=== PATIENT | male | born 1980 | race Caucasian/White ===

== ENCOUNTER 2017-09-29 09:20 | Emergency (ER) | payer OTHER ==
[~2017-09-29] VITALS: Ht 193 cm; Wt 112.0 kg
[~2017-09-29 09:20] MED LIST: LISI-603 PO; METF10002 PO; SIMV40TA5 PO
--- NOTE | 2017-09-29 09:51 | NUR ---
Dr Lutz at the bedside for eval and exam.
[2017-09-29] MEDS ORDERED: OXYCODONE HCL 5 MG TABLET PO ONE (10:00)
[2017-09-29 10:08] VITALS: BP 112/82
--- NOTE | 2017-09-29 10:09 | NUR ---
Patient discharged to home in stable conditon. Written and verbal after care instructions given. Patient verbalizes understanding of instructions.
[2017-09-29] MEDS ORDERED: OXYCODONE HCL 5 MG TABLET ONE (10:16)
== END 2017-09-29 10:09 | disposition home or self-care (01) ==
LOC: ER 09:20
DX: G89.29 Other chronic pain (principal); M54.5 Low back pain; I10 Essential (primary) hypertension; E11.9 Type 2 diabetes mellitus without complications; F17.200 Nicotine dependence, unspecified, uncomplicated
CPT/HCPCS: 99283; A4663

== ENCOUNTER 2017-12-19 20:10 | Inpatient (IN) | payer OTHER ==
[~2017-12-19] VITALS: Ht 193 cm; Wt 93.0 kg
[2017-12-19] MEDS ORDERED: ONDANSETRON IV *ER 4 MG/2 ML VIAL IV ONE (20:55)
[2017-12-19] MEDS ORDERED: ASPIRIN 325 MG TABLET PO ONE (20:55)
[2017-12-19] MEDS ORDERED: MORPHINE SULFATE 2 MG/1 ML DISP.SYRIN IV ONE ×2 (20:55→22:17)
[2017-12-19] MEDS ORDERED: IV NORMAL SALINE 500 ML IV ONE (21:00)
[2017-12-19] MEDS ORDERED: ASPIRIN 325 MG TABLET ONE (21:10)
[2017-12-19] MEDS ORDERED: ONDANSETRON 4 MG/2 ML VIAL ONE (21:11)
[2017-12-19] MEDS ORDERED: MORPHINE SULFATE 4 MG/1 ML DISP.SYRIN ONE ×2 (21:11→21:52)
[2017-12-19 21:18] LABS: BASOPHILS # (AUTO) 0.1 K/uL (0.0-8.0); BASOPHILS % (AUTO) 0.6 % (0.0-2.0); EOSINOPHILS # (AUTO) 0.1 K/uL (0.0-0.7); EOSINOPHILS % (AUTO) 1.1 % (0.0-7.0); HEMATOCRIT 41.7 % (36.7-47.1); HEMOGLOBIN 14.3 g/dL (12.5-16.3); LYMPHOCYTES # (AUTO) 3.5 K/uL (20.0-40.0); LYMPHOCYTES % (AUTO) 38.6 % (20.5-51.5); MEAN CORPUSCULAR HEMOGLOBIN 29.3 uug (23.8-33.4); MEAN CORPUSCULAR HGB CONC 34 g/dL (32.5-36.3); MEAN CORPUSCULAR VOLUME 85.2 fL (73.0-96.2); MONOCYTES # (AUTO) 0.6 K/uL (2.0-10.0); MONOCYTES % (AUTO) 6.2 % (0.0-11.0); NEUTROPHILS # (AUTO) 4.8 K/uL (1.8-8.9); NEUTROPHILS % (AUTO) 53.5 % (38.5-71.5); PLATELET COUNT (AUTO) 370 K/uL (152-348)
[2017-12-19 21:30] LABS: BILIRUBIN,TOTAL 0.4 mg/dL (0.2-1.0); CREATININE 1.2 mg/dL (0.6-1.3); POTASSIUM 3.5 mmol/L (3.5-5.1); TOTAL PROTEIN, SERUM 8.2 g/dL (6.4-8.2)
[2017-12-19] MEDS ORDERED: INSULIN REGULAR, HUMAN 300 UNIT/3 ML VIAL ONE (21:52)
[2017-12-19] MEDS ORDERED: LORAZEPAM 1 MG TABLET ONE (21:52)
[2017-12-19] MEDS ORDERED: LORAZEPAM 0.5 MG TABLET PO ONE (22:19)
[2017-12-19] MEDS ORDERED: HYDROCODONE/APAP 10-325 MG TABLET PO ONE (22:24)
[2017-12-19] MEDS ORDERED: INSULIN REGULAR, HUMAN 1,000 UNITS/10 ML VIAL SUBCUT ONE (22:30)
--- NOTE | 2017-12-19 22:30 | NUR ---
nsg: pt received a/o x 4 fr er with c/o chest pain, back, leg pain. v/s stable. tele, SR. will call md for admitting orders.
[2017-12-19] MEDS ORDERED: HYDROCODONE/APAP 10-325 MG TABLET ONE (22:32)
--- NOTE | 2017-12-19 23:22 | NUR ---
Pt. admitted to TELE, under care of Giovanna Jose (KALPANA). Belongs List completed
[2017-12-19 23:42] VITALS: BP 168/96
[2017-12-20] MEDS ORDERED: MAGNESIUM HYDROXIDE 30 ML LIQUID UDC PO PRN (00:15)
[2017-12-20] MEDS ORDERED: NITROGLYCERIN 0.4 MG/TAB BOTTLE SL PRN (00:15)
[2017-12-20] MEDS: BLOOD SUGAR DIAGNOSTIC 1 EACH STRIP VI SCH ×3 (00:15→11:25)
[2017-12-20] MEDS ORDERED: ONDANSETRON 4 MG/2 ML VIAL IV PRN (00:15)
[2017-12-20] MEDS ORDERED: ZOLPIDEM 5 MG TABLET PO PRN (00:15)
[2017-12-20] MEDS ORDERED: DEXTROSE 50% 50 ML DISP.SYRIN IV PRN (00:15)
[2017-12-20] MEDS ORDERED: ACETAMINOPHEN 325 MG TABLET PO PRN (00:15)
[2017-12-20] MEDS ORDERED: Z GUARD REMEDY PASTE 57 GM TUBE TOP PRN (00:15)
[2017-12-20] MEDS ORDERED: BLOOD SUGAR DIAGNOSTIC 1 EACH STRIP VI ONE (00:30)
[2017-12-20] MEDS: HYDROCODONE/APAP 5-325MG TABLET PO PRN ×4 (00:41→10:01)
--- NOTE | 2017-12-20 00:46 | NUR ---
nsg: pt refused acu check stated already got checked in ER, and stated he already ate so he's sugar will be high.
[2017-12-20 04:00] VITALS: BP 144/91
--- NOTE | 2017-12-20 06:00 | NUR ---
nsg: pt received norco x 2 doses for chest, back, leg pain. tele, SR. v/s stable. hasnt urinated since admission. however, urinated in ER.
[2017-12-20] MEDS: INSULIN REGULAR, HUMAN 300 UNIT/3 ML VIAL SQ PRN ×2 (08:15→11:26)
[2017-12-20] MEDS ORDERED: ENOXAPARIN SODIUM 40 MG/0.4 ML DISP.SYRIN SQ SCH (09:00)
[2017-12-20] MEDS ORDERED: ASPIRIN 81 MG TAB.CHEW PO SCH (09:00)
[2017-12-20] MEDS ORDERED: HYDROCODONE/APAP 10-325 MG TABLET PO ONE (11:00)
--- NOTE | 2017-12-20 11:04 | NUR ---
Spoke with SUPERVISOR CUTTING AND BONING Giovanna Jose regarding pt's pain. New orders received and carried out.
[2017-12-20] MEDS ORDERED: HYDR-3326 PO (11:39)
--- NOTE | 2017-12-20 12:22 | NUR ---
Pt left the floor for discharge (will take bus). Discharge instructions provided and discussed with the pt. Meds reconciled by KALPANA Edwards and reviewed with the pt. Pt verbalized understanding of discharge instructions and medications. All belongings reviewed and returned with the pt. HL left forearm removed. Pt stable and nad noted upon discharge.
== END 2017-12-20 12:18 | disposition home or self-care (01) | DRG 313 ==
LOC: ER 20:11 → TELE 23:00
PROVIDERS: ADMIT Nurse Practitioner Acute Care; ATTEND Nurse Practitioner Acute Care
DX: R07.89 Other chest pain (principal); E87.1 Hypo-osmolality and hyponatremia; F11.20 Opioid dependence, uncomplicated; G89.4 Chronic pain syndrome; M54.40 Lumbago with sciatica, unspecified side; Z79.84 Long term (current) use of oral hypoglycemic drugs; Z87.01 Personal history of pneumonia (recurrent); Z79.899 Other long term (current) drug therapy; Z98.1 Arthrodesis status; R94.5 Abnormal results of liver function studies; I10 Essential (primary) hypertension; E11.9 Type 2 diabetes mellitus without complications; Z59.8 Other problems related to housing and economic circumstances
CPT/HCPCS: 36415; 70030-TC; 71045; 85025; 85610; 93005; A4663; J1815; J2270; J2405; J7030

== ENCOUNTER 2018-01-16 10:25 | Emergency (ER) | payer OTHER ==
[~2018-01-16] VITALS: Ht 193 cm; Wt 116.6 kg
[~2018-01-16 10:25] MED LIST changes: +HYDR-3326 PO; -METF10002 PO; +METF10004 PO
[2018-01-16 11:25] LABS: BASOPHILS # (AUTO) 0.1 K/uL (0.0-8.0); EOSINOPHILS # (AUTO) 0.3 K/uL (0.0-0.7); EOSINOPHILS % (AUTO) 3.9 % (0.0-7.0); HEMATOCRIT 44.8 % (36.7-47.1); LYMPHOCYTES # (AUTO) 1.7 K/uL (20.0-40.0); LYMPHOCYTES % (AUTO) 26.2 % (20.5-51.5); MEAN CORPUSCULAR HGB CONC 34 g/dL (32.5-36.3); MEAN CORPUSCULAR VOLUME 86.5 fL (73.0-96.2); MONOCYTES # (AUTO) 0.3 K/uL (2.0-10.0); MONOCYTES % (AUTO) 5.3 % (0.0-11.0); NEUTROPHILS # (AUTO) 4.2 K/uL (1.8-8.9); NEUTROPHILS % (AUTO) 63.6 % (38.5-71.5); PLATELET COUNT (AUTO) 320 K/uL (152-348); RED BLOOD CELL COUNT(AUTO) 5.18 MIL/uL (4.06-5.63); WHITE BLOOD COUNT (AUTO) 6.6 K/uL (3.6-10.2)
[2018-01-16 11:33] LABS: CREATININE 0.9 mg/dL (0.6-1.3); POTASSIUM 4.2 mmol/L (3.5-5.1)
[2018-01-16 11:44] LABS: BILIRUBIN,TOTAL 0.4 mg/dL (0.2-1.0); TOTAL PROTEIN, SERUM 8.7 g/dL (6.4-8.2)
[2018-01-16] MEDS ORDERED: HYDROCODONE/APAP 10-325 MG TABLET ONE (11:55)
[2018-01-16] MEDS ORDERED: HYDROCODONE/APAP 10-325 MG TABLET PO ONE (12:00)
[2018-01-16] MEDS ORDERED: OXYCODONE/APAP 5-325 MG TABLET PO ONE (13:01)
[2018-01-16] MEDS ORDERED: OXYCODONE/APAP 5-325 MG TABLET ONE (13:08)
--- NOTE | 2018-01-16 13:58 | NUR ---
mse completed, pt d/c'd home, aci/rx x2 given, pt ambulated w/o diff/took all belongings.
[2018-01-16 13:59] VITALS: BP 155/85
== END 2018-01-16 14:00 | disposition home or self-care (01) ==
LOC: ER 10:25
DX: L02.11 Cutaneous abscess of neck (principal); J20.9 Acute bronchitis, unspecified; G89.29 Other chronic pain; M54.5 Low back pain; I10 Essential (primary) hypertension; E11.9 Type 2 diabetes mellitus without complications; F17.210 Nicotine dependence, cigarettes, uncomplicated; Z79.84 Long term (current) use of oral hypoglycemic drugs; Z79.899 Other long term (current) drug therapy
CPT/HCPCS: 36415; 71045; 80053; 85025; 87040 ×2; 99285; A4663

== ENCOUNTER 2018-02-07 08:17 | Emergency (ER) | payer OTHER ==
[~2018-02-07] VITALS: Ht 193 cm; Wt 115.7 kg
[2018-02-07] MEDS ORDERED: OXYC-133 PO (08:35)
--- NOTE | 2018-02-07 08:40 | NUR ---
When patient was asked the question, "Where are your injuries ?"- this patient said, "All over." AOX4, PEDRAZA, respiration:easy. Patient admits to seeing a pain doctor.
[2018-02-07] MEDS ORDERED: DIAZEPAM 2 MG TABLET PO ONE (08:45)
[2018-02-07] MEDS ORDERED: OXYCODONE/APAP 5-325 MG TABLET PO ONE (08:45)
[2018-02-07] MEDS ORDERED: OXYCODONE/APAP 5-325 MG TABLET ONE (08:49)
[2018-02-07] MEDS ORDERED: DIAZEPAM 5 MG TABLET ONE (08:49)
--- NOTE | 2018-02-07 09:35 | NUR ---
Patient discharged to home in stable conditon. Written and verbal after care instructions given to patient. Patient verbalizes understanding of instructions. Extensive explanation was given to patient regarding the need for a follow-up to his ortho doctor & pain doctor. Security assistance was called for discharging this patient.
== END 2018-02-07 09:39 | disposition home or self-care (01) ==
LOC: ER 08:17
DX: G89.29 Other chronic pain (principal); M54.5 Low back pain; E11.9 Type 2 diabetes mellitus without complications; I10 Essential (primary) hypertension; F17.210 Nicotine dependence, cigarettes, uncomplicated; Z79.84 Long term (current) use of oral hypoglycemic drugs; Z79.891 Long term (current) use of opiate analgesic; Z79.899 Other long term (current) drug therapy
CPT/HCPCS: 72110; A4663

== ENCOUNTER 2019-03-15 22:05 | Inpatient (IN) | payer OTHER ==
[~2019-03-15] VITALS: Ht 188 cm; Wt 117.5 kg
[2019-03-15] MEDS: ONDANSETRON IV *ER 4 MG/2 ML VIAL IV ONE ×2 (21:50→22:36)
[2019-03-15] MEDS: IV NORMAL SALINE 1000 ML BAG IV ONE ×2 (21:55→22:35)
[2019-03-15] MEDS: DEXTROSE 5% IV ONE ×2 (22:00→22:50)
[2019-03-15] MEDS: ACETYLCYSTEINE IV ONE ×2 (22:00→22:50)
[~2019-03-15 22:05] MED LIST changes: -HYDR-3326 PO; +METF-442 PO; -METF10004 PO; +OXYC-133 PO
[2019-03-15] MEDS ORDERED: ONDANSETRON 4 MG/2 ML VIAL ONE (22:26)
[2019-03-15] MEDS ORDERED: ACETYLCYSTEINE IV ONE ×2 (22:26→23:15)
[2019-03-15] MEDS ORDERED: HYDROMORPHONE 1 MG/1 ML DISP.SYRIN IV ONE (22:30)
[2019-03-15] MEDS ORDERED: HYDROMORPHONE 1 MG/1 ML DISP.SYRIN ONE (22:43)
[2019-03-15 22:47] VITALS: BP 166/80
[2019-03-15 22:47] LABS: CARBON DIOXIDE 20 mmol/L (21-32); CHLORIDE 97 mmol/L (98-107); CREATININE 1.1 mg/dL (0.6-1.3); UREA NITROGEN, BLOOD 13 mg/dL (7-18)
[2019-03-15 22:48] LABS: BASOPHILS # (AUTO) 0.1 K/uL (0.0-8.0); BASOPHILS % (AUTO) 0.5 % (0.0-2.0); EOSINOPHILS # (AUTO) 0.1 K/uL (0.0-0.7); EOSINOPHILS % (AUTO) 0.6 % (0.0-7.0); HEMATOCRIT 50.2 % (36.7-47.1); HEMOGLOBIN 16.9 g/dL (12.5-16.3); LYMPHOCYTES # (AUTO) 2.8 K/uL (20.0-40.0); LYMPHOCYTES % (AUTO) 25.6 % (20.5-51.5); MEAN CORPUSCULAR HEMOGLOBIN 29.2 uug (23.8-33.4); MEAN CORPUSCULAR HGB CONC 34 g/dL (32.5-36.3); MEAN CORPUSCULAR VOLUME 86.9 fL (73.0-96.2); MONOCYTES # (AUTO) 0.4 K/uL (2.0-10.0); MONOCYTES % (AUTO) 3.4 % (0.0-11.0); NEUTROPHILS # (AUTO) 7.6 K/uL (1.8-8.9); NEUTROPHILS % (AUTO) 69.9 % (38.5-71.5); PLATELET COUNT (AUTO) 302 K/uL (152-348); RED BLOOD CELL COUNT(AUTO) 5.78 MIL/uL (4.06-5.63); WHITE BLOOD COUNT (AUTO) 10.8 K/uL (3.6-10.2)
[2019-03-15 22:54] LABS: ACETAMINOPHEN 15.1 ug/mL (10-30); ALANINE AMINOTRANSFERASE 24 U/L (16-63); ALKALINE PHOSPHATASE 149 U/L (50-136); ASPARTATE AMINOTRANSFERASE 15 U/L (15-37); BILIRUBIN,DIRECT 0.2 mg/dL (0.0-0.2); BILIRUBIN,TOTAL 0.5 mg/dL (0.2-1.0); TOTAL PROTEIN, SERUM 8.9 g/dL (6.4-8.2)
[2019-03-15 22:55] LABS: GLUCOSE 400 mg/dL (74-106)
[2019-03-15 22:59] LABS: ETHANOL < 3 MG/DL (0-0)
[2019-03-15] MEDS ORDERED: HALOPERIDOL LACTATE 5 MG/1 ML VIAL IM ONE (23:00)
[2019-03-15] MEDS ORDERED: IV NORMAL SALINE 1000 ML BAG IV ONE (23:00)
--- NOTE | 2019-03-15 23:04 | NUR ---
Pt bib RA 100 for the c/o nyquil overdose. Per paramedics, pt ingested "15,000 mg" total of 1.5 bottles. Pt is A/O x 4 upon arrival and able to verbalize feelings and follow command. Pt denies suicidal ideation. Pt states "I was feeling bad and having a bad cough. I just wanted to feel better" Pt placed on monitor. Safe environment implemented. VSS.
[2019-03-15] MEDS ORDERED: DEXTROSE 5% IV ONE (23:15)
[2019-03-15] MEDS ORDERED: HALOPERIDOL LACTATE 5 MG/1 ML VIAL ONE (23:15)
--- NOTE | 2019-03-15 23:17 | NUR ---
Pt ambulated to bathroom with stable gait.
[2019-03-15] MEDS ORDERED: INSULIN REGULAR, HUMAN 300 UNIT/3 ML VIAL ONE (23:25)
--- NOTE | 2019-03-15 23:25 | NUR ---
Acetylcysteine 20% (200 mg/ml) (4mL) vials x 6 vials wasted with nursing slot supervisor witness. 2 vials returned to nursing slot supervisor.
[2019-03-15 23:26] VITALS: BP 158/78
[2019-03-15] MEDS ORDERED: INSULIN REGULAR, HUMAN 300 UNIT/3 ML VIAL SQ ONE (23:30)
[2019-03-15] MEDS ORDERED: ACETYLCYSTEINE 20% 800 MG/4 ML VIAL ONE (23:40)
--- NOTE | 2019-03-15 23:45 | NUR ---
Second Acetylcysteine IV unavailable at this time. Nursing slate splitting supervisor aware.
[2019-03-15 23:53] LABS: BILIRUBIN,TOTAL 0.5 mg/dL (0.2-1.0); POTASSIUM 3.8 mmol/L (3.5-5.1)
[2019-03-15 23:54] VITALS: BP 181/87
[2019-03-16] MEDS ORDERED: LORAZEPAM 2 MG/1 ML VIAL ONE (00:28)
[2019-03-16] MEDS ORDERED: LORAZEPAM 2 MG/1 ML VIAL IV ONE (00:30)
--- NOTE | 2019-03-16 00:34 | NUR ---
Per nursing tariff supervisor, weekend receptionist pharmacy called regarding Acetylcysteine IV. Pharmacy will do research regarding second acetylcysteine. ER aware.
--- NOTE | 2019-03-16 00:42 | NUR ---
[facility] called for panel call.
--- NOTE | 2019-03-16 00:45 | NUR ---
ER MD made aware of patient's elevated BP 181/87. Received orders to administer catapres 0.2 mg PO
--- NOTE | 2019-03-16 01:00 | NUR ---
Awaiting pharmacist at this time.
[2019-03-16] MEDS ORDERED: CLONIDINE HCL 0.2 MG TABLET ONE (01:09)
[2019-03-16] MEDS ORDERED: CLONIDINE HCL 0.2 MG TABLET PO ONE (01:15)
[2019-03-16 01:25] VITALS: BP 179/111
[2019-03-16] MEDS ORDERED: IV NS 1000 ML 1,000 ML IV PRN (01:28)
[2019-03-16] MEDS ORDERED: DEXTROSE 50% 50 ML DISP.SYRIN IV PRN (01:30)
[2019-03-16] MEDS ORDERED: LORAZEPAM 2 MG/1 ML VIAL IV PRN (01:30)
[2019-03-16] MEDS ORDERED: IBUPROFEN 400 MG TABLET PO PRN (01:30)
[2019-03-16] MEDS ORDERED: TEMAZEPAM 15 MG CAPSULE PO PRN (01:30)
[2019-03-16] MEDS ORDERED: INSULIN REGULAR, HUMAN 300 UNIT/3 ML VIAL SQ PRN (01:30)
[2019-03-16] MEDS ORDERED: INSULIN REGULAR, HUMAN 300 UNITS/3 ML VIAL SQ PRN (01:30)
[2019-03-16] MEDS ORDERED: MAGNESIUM HYDROXIDE 30 ML LIQUID UDC PO PRN (01:30)
[2019-03-16] MEDS ORDERED: ONDANSETRON 4 MG/2 ML VIAL IV PRN (01:30)
[2019-03-16] MEDS ORDERED: Z GUARD REMEDY PASTE 57 GM TUBE TOP PRN (01:30)
[2019-03-16] MEDS ORDERED: ACETYLCYSTEINE IV ONE (01:45)
[2019-03-16] MEDS ORDERED: DEXTROSE 5% IV ONE (01:45)
[2019-03-16] MEDS ORDERED: ACETYLCYSTEINE IV 10,000 MG in IV D5W 1000ML 1,000 ML IV ONE ×2 (02:00→06:00)
[2019-03-16 02:45] VITALS: BP 178/83
--- NOTE | 2019-03-16 02:50 | NUR ---
Pt. admitted to Tele , under care of Rustam SUN Belongs List completed Acetylcysteine IV 2nd bag initiated and to be continued as inpatient.
[2019-03-16 03:59] VITALS: BP 144/68
[2019-03-16 04:01] LABS: *BILIRUBIN,URIN NEGATIVE (NEGATIVE); *BLOOD, URINE 2+ (NEGATIVE); *COLOR,URINE YELLOW (YELLOW); *KETONES,URINE 3+ (NEGATIVE); *UROBILINOGEN,URINE 0.2 E.U./dl (NORMAL); LEUKOCYTE ESTERASE ,URINE NEGATIVE (NEGATIVE); NITRITE, URINE NEGATIVE (NEGATIVE); PH,URINE 7.5 (5.0-8.0)
[2019-03-16] MEDS: HYDROMORPHONE 1 MG/1 ML DISP.SYRIN IV PRN ×2 (04:16→08:33)
[2019-03-16 05:10] LABS: *AMPHETAMINE, URINE NEGATIVE (NEGATIVE); *BARBITURATE, URINE NEGATIVE (NEGATIVE); *CANNABINOID, URINE NEGATIVE (NEGATIVE); *CLARITY,URINE HAZY (CLEAR); *COCCAINE, URINE NEGATIVE (NEGATIVE); *OPIATE, URINE POSITIVE (NEGATIVE); *PHENCYCLIDINE SCREEN,URINE NEGATIVE (NEGATIVE); UGLUCOSE 3+ (NEGATIVE)
[2019-03-16 05:13] LABS: BACTERIA,URINE NONE SEEN /HPF (NONE SEEN); RBC,URINE 20-50 /HPF (0-3); SQUAMOUS EPITHELIAL CELL,UR FEW /HPF (NONE SEEN); WBC,URINE 0-3 /HPF (0-3)
[2019-03-16 05:14] LABS: MUCUS,URINE FEW /LPF (0-FEW)
[2019-03-16] MEDS ORDERED: ACETYLCYSTEINE IV 0 MG in IV D5W 1000ML 1,000 ML IV ONE (06:00)
--- NOTE | 2019-03-16 06:46 | NUR ---
Admitted to tele, orders carried out; received with ongoing 2nd mucomyst drip; new bag hanged down; no acute distress; safety maintained; continue to monitor; continue plan of care.
[2019-03-16 07:14] LABS: BASOPHILS % (AUTO) 0.2 % (0.0-2.0); BILIRUBIN,TOTAL 0.5 mg/dL (0.2-1.0); CREATININE 0.9 mg/dL (0.6-1.3); HEMATOCRIT 47.8 % (36.7-47.1); LYMPHOCYTES # (AUTO) 1.1 K/uL (20.0-40.0); LYMPHOCYTES % (AUTO) 9.2 % (20.5-51.5); MAGNESIUM 1.8 mg/dL (1.8-2.4); MEAN CORPUSCULAR HEMOGLOBIN 28.8 uug (23.8-33.4); MEAN CORPUSCULAR HGB CONC 33 g/dL (32.5-36.3); MEAN CORPUSCULAR VOLUME 86.3 fL (73.0-96.2); MONOCYTES # (AUTO) 0.2 K/uL (2.0-10.0); MONOCYTES % (AUTO) 1.6 % (0.0-11.0); PHOSPHOROUS 3.1 mg/dL (2.5-4.9); PLATELET COUNT (AUTO) 271 K/uL (152-348); POTASSIUM 3.6 mmol/L (3.5-5.1); RED BLOOD CELL COUNT(AUTO) 5.55 MIL/uL (4.06-5.63); TOTAL PROTEIN, SERUM 8.5 g/dL (6.4-8.2); WHITE BLOOD COUNT (AUTO) 12.4 K/uL (3.6-10.2)
[2019-03-16] MEDS ORDERED: BLOOD SUGAR DIAGNOSTIC 1 EACH STRIP VI SCH (07:30)
--- NOTE | 2019-03-16 10:45 | NUR ---
PATIENT WANTS TO GO AMA, TEACHING ABOUT THE TREATMENT IMPORTANCE IS GIVEN AND EXPLAINED, PROS/COS ARE EXPLAINED. PATIENT STILL WANTS TO GO HOME NO RESP DISTRESS THIS SHIFT, PATIENT WAS SWEATING AT TIMES AND SHOWED SYMPTOMS OF WITHDRAWN AMA DOCUMENTS SINGED BY THE PATIENT PATIENT LEFT AND SUPERVISED DOWNSTAIRS
--- NOTE | 2019-03-16 11:00 | NUR ---
AMA REPORT WAS DONE WITH Unique Id: [id number]
== END 2019-03-16 10:30 | disposition left against medical advice (07) | DRG 812 ==
LOC: ER 22:05 → TELE3 03-16 02:15
PROVIDERS: ADMIT Hospitalist; ATTEND Internal Medicine
DX: T39.1X1A Poisoning by 4-Aminophenol derivatives, accidental (unintentional), initial encounter (principal); E11.65 Type 2 diabetes mellitus with hyperglycemia; E87.2 Acidosis; R11.2 Nausea with vomiting, unspecified; Y92.019 Unspecified place in single-family (private) house as the place of occurrence of the external cause; G89.29 Other chronic pain; M54.9 Dorsalgia, unspecified; M54.30 Sciatica, unspecified side; Z79.84 Long term (current) use of oral hypoglycemic drugs; Z79.899 Other long term (current) drug therapy; Z91.19 Patient's noncompliance with other medical treatment and regimen; Z98.1 Arthrodesis status; E66.3 Overweight; Z68.33 Body mass index [BMI] 33.0-33.9, adult; I10 Essential (primary) hypertension; E78.5 Hyperlipidemia, unspecified
CPT/HCPCS: 36415; 71045; 80307; 83735; 84100; 85025; 93005; A4663; G0378; G0480; G0480-TC; J0132; J1170; J1630; J1815; J2060; J2405; J7030; J7060; J7070